=== PATIENT | female | born 1990 | race Caucasian/White ===

== ENCOUNTER 2017-07-21 16:21 | Inpatient (IN) ==
[2017-07-21] MEDS ORDERED: ONDANSETRON 4 MG/2 ML VIAL IV STA (20:06)
[2017-07-21] MEDS ORDERED: ONDANSETRON 4 MG/2 ML VIAL ONE (20:14)
[2017-07-21 20:52] LABS: Basophils % 0.2 % (0.0-0.8); Eosinophils % 0.2 % (0.00-10.9); Hemoglobin 12.7 GM/DL (12.0-16.0); Immature Granulocytes % 0.3 %; Immature Granulocytes Absolute 0.05 #; Lymphocytes # 2.8 10*3/uL (1.4-4.0); Mean Corpuscular HGB Conc 34.3 GM/DL (32-36); Mean Corpuscular Hemoglobin 30 PG (27-34); Mean Corpuscular Volume 86.7 FL (87-102); Mean Platelet Volume 12.7 FL (9.6-12.0); Monocytes # 0.6 10*3/uL (0.11-0.8); Monocytes % 4.3 % (1.7-12.7); Platelet Count 183 T/CUMM (130-400); Red Blood Count 4.27 MC/CUMM (3.8-5.5); Red Cell Distribution Width 13.7 % (9.3-17.3); White Blood Count 14.5 T/CUMM (4-12)
[2017-07-21 21:02] LABS: PT Patient Result 10.8 SECS; Partial Thromboplastin Time 27.6 SECS (0-40)
[2017-07-21 21:06] LABS: Apearance,Urine CLOUDY (Clear); Bilirubin,Urine Negative (Negative); Blood, Urine Negative (Negative); Glucose,Urine (UA) 50 mg/dL (Negative); Hyaline Casts,Urine 10 /LPF (0-3); Ketones,Urine 80 mg/dL (Negative); Mucus,Urine Many /LPF (Occasional); Nitrite,Urine Negative (Negative); Protein,Urine 100 MG/DL; RBC,Urine 2 /HPF (0-4); Squamous Epithelial Cell,Urine Many /HPF (0-10); Urine Color Amber (Yellow); Urine Specific Gravity 1.027 (1.001-1.035); WBC,Urine 17 /HPF (0-6)
[2017-07-21] MEDS ORDERED: AMPICILLIN/SULBACTAM 3,000 MG in SODIUM CHLORIDE 0.9% 100 ML IV STA (21:11)
[2017-07-21] MEDS ORDERED: PHENAZOPYRIDINE 95 MG TABLET PO STA (21:11)
[2017-07-21] MEDS ORDERED: SODIUM CHLORIDE 0.9% 0 ML IV ONE (21:15)
[2017-07-21] MEDS ORDERED: PHENAZOPYRIDINE 95 MG TABLET ONE (21:15)
[2017-07-21] MEDS ORDERED: AMPICILLIN/SULBACTAM 3,000 MG VIAL ONE (21:15)
[2017-07-21 21:40] LABS: Albumin 3.6 G/DL (3.4-5.0); Bilirubin,Total 0.7 MG/DL (0.2-1.0); Calcium 9.5 MG/DL (8.5-10.1); Potassium 3.9 MMOL/L (3.5-5.1); Total Protein 7.2 G/DL (6.4-8.3)
[2017-07-21] MEDS ORDERED: HYDROmorphone 2 MG/1 ML VIAL IV PRN (23:16)
[2017-07-22] MEDS: AMPICILLIN/SULBACTAM 3,000 MG in SODIUM CHLORIDE 0.9% 100 ML IV SCH ×4 (04:36→22:17)
[2017-07-22] MEDS: ONDANSETRON 4 MG/2 ML VIAL IV PRN (07:22)
[2017-07-23] MEDS: AMPICILLIN/SULBACTAM 3,000 MG in SODIUM CHLORIDE 0.9% 100 ML IV SCH ×4 (03:56→21:37)
[2017-07-23] MEDS: ONDANSETRON 4 MG/2 ML VIAL IV PRN (04:55)
[2017-07-23 05:42] LABS: Basophils % 0.2 % (0.0-0.8); Eosinophils # 0.1 10*3/uL (0.0-0.87); Eosinophils % 0.6 % (0.00-10.9); Hematocrit 34.5 VOL% (35.7-47.0); Hemoglobin 11.5 GM/DL (12.0-16.0); Immature Granulocytes % 0.4 %; Immature Granulocytes Absolute 0.04 #; Lymphocytes # 1.8 10*3/uL (1.4-4.0); Lymphocytes % 19.7 % (21.3-54.2); Mean Corpuscular HGB Conc 33.3 GM/DL (32-36); Mean Corpuscular Hemoglobin 29 PG (27-34); Mean Corpuscular Volume 87.6 FL (87-102); Mean Platelet Volume 12.7 FL (9.6-12.0); Monocytes # 0.5 10*3/uL (0.11-0.8); Monocytes % 5.1 % (1.7-12.7); Neutrophils # 6.6 10*3/uL (1.4-7.4); Platelet Count 150 T/CUMM (130-400); Red Blood Count 3.94 MC/CUMM (3.8-5.5); Red Cell Distribution Width 13.6 % (9.3-17.3); White Blood Count 8.9 T/CUMM (4-12)
[2017-07-23 06:03] LABS: Albumin 3.1 G/DL (3.4-5.0); Bilirubin,Total 0.4 MG/DL (0.2-1.0); Calcium 8.9 MG/DL (8.5-10.1); Osmolality,Calculated 273.5 MOS/KG (273-304); Potassium 3.8 MMOL/L (3.5-5.1); Total Protein 6.2 G/DL (6.4-8.3)
[2017-07-24] MEDS: AMPICILLIN/SULBACTAM 3,000 MG in SODIUM CHLORIDE 0.9% 100 ML IV SCH ×4 (04:00→22:00)
[2017-07-24] MEDS: ONDANSETRON 4 MG/2 ML VIAL IV PRN (05:25)
[2017-07-25] MEDS: AMPICILLIN/SULBACTAM 3,000 MG in SODIUM CHLORIDE 0.9% 100 ML IV SCH ×4 (04:22→22:30)
[2017-07-25] MEDS ORDERED: LACTATED RINGERS 1,000 ML IV SCH (05:30)
[2017-07-25] MEDS: ONDANSETRON 4 MG/2 ML VIAL IV PRN (05:37)
[2017-07-25] MEDS ORDERED: TISSUE ADHESIVE 1 EACH APPLICATOR TOP ONE (10:16)
[2017-07-25] MEDS ORDERED: LIDOCAINE 1%/EPI INJ 20 ML VIAL ONE (10:16)
[2017-07-25] MEDS ORDERED: BUPIVACAINE 0.25% 50 ML VIAL ONE (10:16)
[2017-07-25] MEDS ORDERED: AMPICILLIN/SULBACTAM 3,000 MG VIAL ONE (10:27)
[2017-07-25] MEDS ORDERED: HYDROmorphone 2 MG/1 ML VIAL IV PRN (12:03)
[2017-07-25] MEDS ORDERED: ONDANSETRON 4 MG/2 ML VIAL IV PRN (12:03)
[2017-07-25] MEDS ORDERED: PROPOFOL 200 MG/20 ML VIAL IV ONE (12:07)
[2017-07-25] MEDS ORDERED: ePHEDrine 50 MG/ML AMP ONE (12:08)
[2017-07-25] MEDS ORDERED: fentaNYL 100 MCG/2 ML VIAL ONE (12:08)
[2017-07-25] MEDS ORDERED: SEVOFLURANE 1 UNIT/15 MINUTE INH ONE (12:08)
[2017-07-25] MEDS ORDERED: ONDANSETRON 4 MG/2 ML VIAL ONE ×2 (12:08→12:09)
[2017-07-25] MEDS ORDERED: HYDROmorphone 2 MG/1 ML VIAL ONE (12:08)
[2017-07-25] MEDS ORDERED: LACTATED RINGERS 1,000 ML IV ONE (12:09)
[2017-07-25] MEDS ORDERED: SUCCINYLCHOLINE 200 MG/10 ML VIAL ONE (12:09)
[2017-07-25] MEDS: HYDROmorphone 2 MG/1 ML VIAL IV PRN ×4 (12:10→12:27)
[2017-07-26] MEDS: AMPICILLIN/SULBACTAM 3,000 MG in SODIUM CHLORIDE 0.9% 100 ML IV SCH ×2 (04:25→10:43)
[2017-07-26 04:42] VITALS: BP 110/69
== END 2017-07-26 12:25 | disposition home or self-care (01) | DRG 951 ==
LOC: N.ED 16:21 → N.EDINP 21:47 → N.OB 22:34
PROVIDERS: ADMIT Specialist; ATTEND Specialist
PROC: LAPCHOL (2017-07-25 10:37)